=== PATIENT | male | born 1975 | race Caucasian/White ===

== ENCOUNTER 2021-07-26 07:41 | Emergency (ER) | payer SELFPAY | END 2021-07-26 07:54 | disposition left against medical advice (07) | LOC: ER 07:41 | DX: I10 Essential (primary) hypertension (principal); R06.02 Shortness of breath; Z53.21 Procedure and treatment not carried out due to patient leaving prior to being seen by health care provider ==

== ENCOUNTER → 2021-09-03 | Outpatient (CLI) | payer OTHER ==
--- NOTE | 2021-09-03 23:42 | RAD ---
XR LUMBAR SPINE 2-3V History: Chronic pain Comparison: None. Technique: 3 views of the lumbar spine. Findings: There are 5 non-rib bearing lumbar vertebral segments. There is no evidence of fracture. No destructive osseous lesions. Alignment is normal. Facet hypertrophy greatest at L5-S1. Prominent marginal osteophytes in the lower thoracic spine. Mild multilevel degenerative endplate ost eophytes in the lumbar spine. Mild disc space narrowing L4-L5 and L5-S1. Sacroiliac joints are unremarkable. Soft tissues are unremarkable. IMPRESSION: 1. Mild lumbar spondylosis. Electronically signed by: Merrill Oconnell MD (09/03/2021 11:39 PM) [facility]
--- NOTE | 2021-09-03 23:44 | RAD ---
Exam: BILATERAL HIP RADIOGRAPHS History: Chronic hip pain. Comparison: None. Findings: 2 AP views of the pelvis. Coned AP and frog-leg lateral views of the right hip and of the left hip. O sseous mineralization is normal. No acute fracture or dislocaton. Severe bilateral hip degenerative c hanges with superior joint space narrowing, large circumferential femoral head osteophytes and acetab ular osteophytes. Pubic rami are intact. The sacroiliac joints are unremarkable. Impression: 1. Severe bilateral hip degenerative changes. Electronically signed by: Merrill Oconnell MD (09/03/2021 11:42 PM) [facility]
== END ==
LOC: RAD 14:37
PROVIDERS: ATTEND Nurse Practitioner Family
DX: M16.0 Bilateral primary osteoarthritis of hip (principal); M47.817 Spondylosis without myelopathy or radiculopathy, lumbosacral region; M25.78 Osteophyte, vertebrae; M54.9 Dorsalgia, unspecified; M25.851 Other specified joint disorders, right hip; M25.852 Other specified joint disorders, left hip
CPT/HCPCS: 72100; 73521

== ENCOUNTER 2021-09-20 19:30 | Emergency (ER) | payer SELFPAY ==
[2021-09-20] MEDS ORDERED: DIPHTH,PERTUSS(ACELL),TET TOX 0.5 ML DISP.SYRIN. VAX IM ONE (21:31)
[2021-09-20] MEDS ORDERED: ALBUTEROL SULFATE 8GM INHALER. ONE (22:49)
--- NOTE | 2021-09-21 13:54 | RAD ---
EXAM: CT HEAD WITHOUT IV CONTRAST CLINICAL HISTORY: Blackout after coughing. Scrape to left forehead COMPARISON: None. TECHNIQUE: Routine CT of the head without contrast. Soft tissues and bone windows were reviewed. PQRS compliance statement - One or more of the following individualized dose reduction techniques wer e utilized for this study: 1. Automated exposure control 2. Adjustment of the mA and/or kV according to patient size 3. Use of iterative reconstruction technique FINDINGS: There is no evidence of hemorrhage, mass or extra-axial fluid collection. Dover-white differentiation is maintained with no evidence of edema. There is no mass effect or shift of the intracranial structures. The ventricles, basilar cisterns and cortical sulci are normal in size and configuration for the rashmi ents stated age. The cerebellum and brainstem are unremarkable. The calvarium demonstrates no evidence of fracture or focal lesion. There is normal aeration of the visualized paranasal sinuses and mastoid air cells. The visualized portions of the orbits are normal. IMPRESSION: No evidence for acute intracranial process. Electronically signed by: Paul Navarrete MD (09/20/2021 10:14 PM) [facility]
--- NOTE | 2021-09-21 18:56 | EKG ---
[address] [address] Test Date: 2021-09-20 Test Time: 20:29:19 Pat Name: DUKE GRANT Department: Room: Gender: M [employer] Hel[employer]: KELLY : 1975 Requested By: YORDAN SORTO Order Number: [id number] Reading MD: Jordan Heller MD Measurements Intervals [place] Rate: 61 P: 35 MT: 150 QRS: 44 QRSD: 98 T: 38 QT: 420 QTc: 429 Interpretive Statements SINUS RHYTHM Electronically Signed On 09-30-2021 10:02:21 CDT by Jordan Heller MD
== END 2021-09-20 22:53 | disposition home or self-care (01) ==
LOC: ER 19:30
DX: R55 Syncope and collapse (principal); I10 Essential (primary) hypertension; Z88.0 Allergy status to penicillin
CPT/HCPCS: 70450; 90471; 90715; 99284